=== PATIENT | female | born 1960 | race Caucasian/White ===

== ENCOUNTER → 2017-10-24 | Outpatient (CLI) | payer OTHER ==
[2017-06-18 07:00] VITALS: BP 141/64
[~2017-10-24] MED LIST: ALPR0.5T6 PO; ATEN50TA PO; CLIN300C8 PO; DICL100T PO; DIPH25CA58 PO; DIPH25TA26 PO; FENT1PAT19 TD; GABA-586 PO; HYDR25TA9 PO; NITR0.4T SL; OXYC20TA PO; OXYC5TAB95 PO; SIMV40TA3 PO; TIZA4CAP3 PO
--- NOTE | 2017-10-24 17:09 | RAD ---
DATE: 10/24/2017 EXAM: DIGITAL SCREEN BILAT W/CAD HISTORY: Screening mammogram. History of benign right breast biopsy 2004. COMPARISON: . Mammogram from 2014. This study was interpreted with the benefit of Computerized Aided Detection (CAD). FINDINGS: Breast Density: SCATTERED The breast parenchyma shows scattered fibroglandular densities. Breast parenchyma level B. The skin and nipples are within normal limits. Benign bilateral calcifications. No suspicious calcifications, spiculated masses or areas of architectural distortion. IMPRESSION: No mammographic evidence of malignancy. Stable mammogram. BI-RADS CATEGORY: 2 BENIGN FINDING(S) RECOMMENDED FOLLOW-UP: 12M 12 MONTH FOLLOW-UP PQRS compliance statement: Patient information was entered into a reminder system with a target due date 10/24/2018 for the next mammogram. Mammography is a sensitive method for finding small breast cancers, but it does not detect them all and is not a substitute for careful clinical examination. A negative mammogram does not negate a clinically suspicious finding and should not result in delay in biopsying a clinically suspicious abnormality. "Our facility is accredited by the [employer] Mammography Program."
== END | disposition home or self-care (01) ==
LOC: MAMMO 15:18
PROVIDERS: ATTEND Family Medicine
DX: Z12.31 Encounter for screening mammogram for malignant neoplasm of breast (principal)
CPT/HCPCS: G0202; 77067

== ENCOUNTER 2019-09-16 16:28 | Emergency (ER) | payer OTHER ==
[~2019-09-16] VITALS: Ht 162.6 cm; Wt 59.9 kg
[~2019-09-16 16:28] MED LIST changes: -GABA-586 PO; +GABA300C18 PO; +HYDR-2145 PO; -HYDR25TA9 PO; -NITR0.4T SL; +NITR0.4T24 SL; +OXYC5TAB4 PO; -OXYC5TAB95 PO
--- NOTE | 2019-09-16 16:55 | PHYS DOC ---
Past Medical History Past Medical History: Arthritis, CAD, Fibromyalgia, GERD, High Cholesterol, Hypertension Additional Past Medical Histor: HERNIATED DISC, CYSTS BEHIND BILATERAL KNEES Past Surgical History: Appendectomy, , Tonsillectomy Additional Past Surgical Histo: BILAT SHOULDER, HEART CATH WITH STENT X3 Alcohol Use: Occasionally Drug Use: None Adult General Chief Complaint Chief Complaint: HAND PROBLEM HPI HPI Patient is a 59 year old female who presents with became dizzy yesterday but she was standing in the driveway and fell. Patient states she did not pass out. Patient states she fell on her face is symmetric driveway. Patient has bruising to her chin and has an abrasion to her upper lip. Patient states she does not have a headache and she is not dizzy and has no visual changes today. Patient also has left dorsal hand swelling and tenderness to palpation at the ulnar side. Patient also has bruising to the mid anterior hand. Patient she took a oxycodone at home are patent is a 5 out of 10. Review of Systems Review of Systems Musculoskeletal: Left hand pain. Denies back pain or joint pain [] Integument: Chin bruising, abrasion to upper lip. rash or skin lesions [] All other systems were reviewed and found to be within normal limits, except as documented in this note. Allergies Allergies Allergies Coded Allergies Type Severity Reaction Last Updated Verified I S O L A T I O N *CONTACT* Allergy Unknown 10/08/16 Yes No Known Medication Allergies Allergy Unknown 10/08/16 Yes Physical Exam Physical Exam Constitutional: Well developed, well nourished, no acute distress, non-toxic a ppearance. [] HENT: Normocephalic, atraumatic, bilateral external ears normal, oropharynx moist, no oral exudates, nose normal. [] Eyes: PERRLA, EOMI, conjunctiva normal, no discharge. [] Neck: Normal range of motion, no tenderness, supple, no stridor. [] Skin: Bruising to dorsal and anterior hand. Bruising to chin. Abrasion to upper lip. Warm, dry, no erythema, no rash. [] Back: No tenderness, no CVA tenderness. [] Extremities: Left dorsal hand tenderness, no cyanosis, no clubbing, ROM intact, Left dorsal hand 2+ edema. [] Neurologic: Alert and oriented X 3, normal motor function, normal sensory function, no focal deficits noted. [] Psychologic: Affect normal, judgement normal, mood normal. [] Current Patient Data Vital Signs Vital Signs Date Time Temp Pulse Resp B/P (MAP) Pulse Ox O2 Delivery O2 Flow Rate FiO2 09/16/19 16:58 98.0 59 18 124/81 (95) 95 Room Air 98.0 EKG EKG [] Radiology/Procedures Radiology/Procedures [] Impressions: [facility] [address] [place] [address] IMAGING REPORT Signed PATIENT: CLIVE MAKI ACCOUNT: [id number] : 1960 LOCATION: ER AGE: 59 SEX: F EXAM STATUS: REG ER ORD. PHYSICIAN: ADALI DEL RIO APRN REASON: dizziness, fall, facial bruising PROCEDURE: CT HEAD AND MAXILLOFACIAL WO CT scan of the head without contrast 09/16/2019 Clinical History: Dizziness. Fall with head injury. Technique: Unenhanced, contiguous, 5 mm axial sections were obtained through the head. One or more of the following individualized dose reduction techniques were utilized for this study: 1. Automated exposure control. 2. Adjustment of the mA and/or kV according to patient size. 3. Use of iterative reconstruction technique. Findings: There is mild generalized parenchymal atrophy. No acute parenchymal abnormality is seen. No extra-axial fluid collection is noted. No skull fracture is seen. Impression: No acute intracranial abnormality is seen. CT scan of the facial bones without contrast 09/16/2019 Clinical history: Fall with facial bruising. Technique: Unenhanced, contiguous, 0.625 mm axial sections were obtained through the facial bones and orbits. 3 mm reconstructed sagittal, axial and coronal images were obtained. One or more of the following individualized dose reduction techniques were utilized for this study: 1. Automated exposure control. 2. Adjustment of the mA and/or kV according to patient size. 3. Use of iterative reconstruction technique. Findings: No facial bone fracture is seen. Both orbits are intact. Mild to moderate mucosal thickening in seen scattered throughout the paranasal sinuses. The patient is edentulous. No air-fluid level is seen within the sinuses. Subluxation of the condylar head anteriorly at the right TMJ is seen which is likely a chronic finding. Impression: No facial bone or orbital fracture is seen. Electronically signed by: Guicho Lacey MD (09/16/2019 5:20 PM) [facility] DICTATED and SIGNED BY: GUICHO LACEY MD DATE: 09/16/19 172 [facility] [address] [place] [address] IMAGING REPORT Signed PATIENT: CLIVE MAKI ACCOUNT: [id number] : 1960 LOCATION: ER AGE: 59 SEX: F EXAM STATUS: REG ER ORD. PHYSICIAN: ADALI DEL RIO APRN REASON: bruising PROCEDURE: WRIST 3V LEFT 3 views left hand and 3 views left wrist HISTORY: Pain status post fall AP lateral oblique views The views left wrist: There is a fractures the base of the fifth metacarpal. Remaining visualized osseous structures appear intact. There is moderate degenerative changes of the lateral wrist. 3 views left hand: There is a minimally displaced fracture of the base of the fifth metacarpal. IMPRESSION: Acute fracture of the base of the fifth metacarpal. Electronically signed by: Irene Lomeli III, MD (09/16/2019 5:49 PM) [id number] DICTATED and SIGNED BY: IRENE LOMELI III, MD DATE: 09/16/19 174 Course & Med Decision Making Course & Med Decision Making Patient can wiggle all fingers and she can make a fist but it is very painful. She has full range of motion in her wrist. No tenderness to the wrist or her forearm or humerus. Patient has full range of motion in her elbow and shoulder. Patient has tenderness to her nose with palpation without swelling, deformity, or bruising. Radial pulses strong and present. Skin pink warm and dry. No Signs of basilar skull fracture. PERRLA. Patient denies any dizziness or headache at this time. Patient denies chest pain, shortness of air, abdominal pain, nausea, vomiting, numbness or tingling, visual changes, weakness, back pain, neck pain. Speaks in full clear sentences. Ambulatory with a steady gait. Patient denies blood thinners. No back focal tenderness or neck tenderness. Full ROM of neck. No loose teeth or dental damage. Did not bite tongue. Xray shows There is a minimally displaced fracture of the base of the fifth metacarpal. Ulnar Gutter placed by Nursing. Splint Assessment: Neurovascularly intact post splint placement with good fit. Dragon Disclaimer Dragon Disclaimer This electronic medical record was generated, in whole or in part, using a voice recognition dictation system. Departure Departure Impression: Primary Impression: Fracture, metacarpal Disposition: HOME, SELF-CARE Condition: STABLE Referrals: JIGNA BENITEZ MD (PCP) CHICHI WALSH MD Patient Instructions: Hand Fracture, Fifth Metacarpal Additional Instructions: Follow up with Orthopedics as soon as possible. Ice and elevated. Scripts Oxycodone/Apap 5-325 (PERCOCET 5-325 MG TABLET ) 1 Each Tablet 1 TAB PO PRN Q6HRS PRN for PAIN, #10 TAB 0 Refills Prov: ADALI DEL RIO APRN 09/16/19 Problem Qualifiers Primary Impression: Fracture, metacarpal Encounter type: initial encounter Metacarpal bone: fifth Fracture type: closed Metacarpal location: base Fracture alignment: nondisplaced Laterality: left Qualified Codes: S62.347A - Nondisplaced fracture of base of fifth metacarpal bone, left hand, initial encounter for closed fracture ADALI DEL RIO MISSION ANALYST Sep 16, 2019 16:55
[2019-09-16 16:58] VITALS: BP 124/81
--- NOTE | 2019-09-16 17:23 | RAD ---
CT scan of the head without contrast 09/16/2019 Clinical History: Dizziness. Fall with head injury. Technique: Unenhanced, contiguous, 5 mm axial sections were obtained through the head. One or more of the following individualized dose reduction techniques were utilized for this study: 1. Automated exposure control. 2. Adjustment of the mA and/or kV according to patient size. 3. Use of iterative reconstruction technique. Findings: There is mild generalized parenchymal atrophy. No acute parenchymal abnormality is seen. No extra-axial fluid collection is noted. No skull fracture is seen. Impression: No acute intracranial abnormality is seen. CT scan of the facial bones without contrast 09/16/2019 Clinical history: Fall with facial bruising. Technique: Unenhanced, contiguous, 0.625 mm axial sections were obtained through the facial bones and orbits. 3 mm reconstructed sagittal, axial and coronal images were obtained. One or more of the following individualized dose reduction techniques were utilized for this study: 1. Automated exposure control. 2. Adjustment of the mA and/or kV according to patient size. 3. Use of iterative reconstruction technique. Findings: No facial bone fracture is seen. Both orbits are intact. Mild to moderate mucosal thickening in seen scattered throughout the paranasal sinuses. The patient is edentulous. No air-fluid level is seen within the sinuses. Subluxation of the condylar head anteriorly at the right TMJ is seen which is likely a chronic finding. Impression: No facial bone or orbital fracture is seen. Electronically signed by: Guicho Lacey MD (09/16/2019 5:20 PM) [facility]
--- NOTE | 2019-09-16 17:51 | RAD ---
3 views left hand and 3 views left wrist HISTORY: Pain status post fall AP lateral oblique views The views left wrist: There is a fractures the base of the fifth metacarpal. Remaining visualized osseous structures appear intact. There is moderate degenerative changes of the lateral wrist. 3 views left hand: There is a minimally displaced fracture of the base of the fifth metacarpal. IMPRESSION: Acute fracture of the base of the fifth metacarpal. Electronically signed by: Corona Daniels III, MD (09/16/2019 5:49 PM) [id number]
[2019-09-16] MEDS ORDERED: OXYC1TAB15 PO (18:02)
[2019-09-16] MEDS ORDERED: DIPHTH,PERTUSS(ACELL),TET TOX 0.5 ML DISP.SYRIN. VAX IM ONE (18:30)
== END 2019-09-16 18:46 | disposition home or self-care (01) ==
LOC: ER 16:28
DX: S62.347A Nondisplaced fracture of base of fifth metacarpal bone, left hand, initial encounter for closed fracture (principal); S60.222A Contusion of left hand, initial encounter; S00.83XA Contusion of other part of head, initial encounter; S00.531A Contusion of lip, initial encounter; K21.9 Gastro-esophageal reflux disease without esophagitis; E78.00 Pure hypercholesterolemia, unspecified; I10 Essential (primary) hypertension; I25.10 Atherosclerotic heart disease of native coronary artery without angina pectoris; Z95.5 Presence of coronary angioplasty implant and graft; Z91.041 Radiographic dye allergy status; W18.39XA Other fall on same level, initial encounter; Y93.89 Activity, other specified; Y92.89 Other specified places as the place of occurrence of the external cause; Y99.8 Other external cause status
CPT/HCPCS: 29125; 70450; 70486; 73110; 73130; 90471; 90715; 99284

== ENCOUNTER → 2022-02-12 | Outpatient (CLI) | payer OTHER ==
[~2022-02-12] MED LIST changes: +CLIN-94 PO; -CLIN300C8 PO; +OXYC1TAB15 PO; +SIMV40TA18 PO; -SIMV40TA3 PO
--- NOTE | 2022-02-12 11:00 | RAD ---
XR KNEE_RT 1-2 VIEWS History: Reason: RIGHT KNEE PAIN / Spl. Instructions: / History: Technique: 2 views right knee Comparison: None. Findings: Moderate right knee degenerative changes most prominent within the lateral compartment. Chondrocalcin osis within the lateral compartment. Minimally joint effusion. No dislocation. No acute fracture. Impression: 1. Moderate right knee DJD. Electronically signed by: Chance Juan DO (02/12/2022 10:58 AM) [id number]
--- NOTE | 2022-02-12 11:02 | RAD ---
XR LUMBAR SPINE 2-3V History: Reason: BACK AND RIGHT KNEE PAIN / Spl. Instructions: / History: Technique: 3 views lumbar spine. Comparison: None. Findings: Rightward curvature lumbar spine centered at L2. Normal vertebral body height. No acute fracture. Mod erate degenerative disc changes most prominent L1-L2 and L2-L3. Facet arthropathy. Impression: 1. Moderate lumbar spondylosis with rightward curvature. Electronically signed by: Chance Juan DO (02/12/2022 11:00 AM) [id number]
== END ==
LOC: RAD 08:41
PROVIDERS: ATTEND Family Medicine
DX: Z02.71 Encounter for disability determination (principal); M47.816 Spondylosis without myelopathy or radiculopathy, lumbar region; M48.8X6 Other specified spondylopathies, lumbar region; M43.8X6 Other specified deforming dorsopathies, lumbar region; M17.11 Unilateral primary osteoarthritis, right knee; M11.261 Other chondrocalcinosis, right knee
CPT/HCPCS: 72100; 73560